=== PATIENT | female | born 1995 | race Caucasian/White ===

== ENCOUNTER 2023-01-06 20:36 | Emergency (ER) | payer MEDICAID, OTHER ==
[~2023-01-06] VITALS: Ht 160 cm; Wt 84.8 kg
[2023-01-06 20:40] VITALS: BP 140/85
--- NOTE | 2023-01-06 20:43 | NUR ---
TO LOBBY, A/W BED AMBULATORY
[2023-01-06] MEDS ORDERED: ONDANSETRON 4 MG ODT PO ONE (20:55)
--- NOTE | 2023-01-06 22:20 | NUR ---
PATIENT CALL TO BE SEEN BY [facility], NO RESPONSE PATIENT LEFT WITHOUT BEING SEEN BY DR. MUNOZ. NO FURTHER CARE PROVIDED FOR PATIENT.
--- NOTE | 2023-01-06 22:25 | NUR ---
CALLED FOR THE SECOND TIME , NO RESPONSE
--- NOTE | 2023-01-06 22:30 | NUR ---
CALLED FOR THE THIRD TIME , NO RESPONSE
== END 2023-01-06 22:20 | disposition left against medical advice (07) ==
LOC: MED 20:36
DX: R11.10 Vomiting, unspecified (principal); Z53.21 Procedure and treatment not carried out due to patient leaving prior to being seen by health care provider
CPT/HCPCS: 99281; Q0162